=== PATIENT | male | born 1985 | race American Indian/Alaskan Native ===

== ENCOUNTER 2017-06-15 14:31 | Emergency (ER) | payer SELFPAY ==
[2017-06-15 16:18] LABS: Bilirubin,Urine NEG (Negative); Blood,Urine NEG (Negative); Ketones,Urine NEG (Negative); Leukocyte Esterase,Urine TR (Negative); Mucus,Urine 2+ /HPF; Nitrite,Urine NEG (Negative); Protein,Urine <15 mg/dL mg/dL (Negative)
--- NOTE | 2017-06-15 19:16 | Emergency Department Report ---
HPI - General Chief Complaint: Urogenital-Male Time Seen by Provider: 06/15/17 18:58 - HPI HPI: 31-year-old male presents today complaining of streaks of blood in his urine 2 days. 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 Denies any pain. Denies burning upon urination, increased urinary frequency or urgency, penile discharge. Denies fever, chills, nausea, vomiting, chest pain, shortness of breath, abdominal pain. ED Past Medical Hx - Past Medical History Previous Medical History?: No - Surgical History Past Surgical History?: No - Medications Home Medications: Home Medications Medication Instructions Recorded Confirmed Last Taken Type Nitrofurantoin [place]/M-Cryst 100 mg PO Q12HR #10 capsule 06/15/17 Unknown Rx [Macrobid CAP] ED Review of Systems ROS: Stated complaint: URINATING BLOOD Other details as noted in HPI Constitutional: denies: chills, fever, malaise Eyes: denies: eye pain ENT: denies: ear pain, throat pain, congestion Respiratory: denies: cough, shortness of breath, wheezing Cardiovascular: denies: chest pain, palpitations Endocrine: no symptoms reported Gastrointestinal: denies: abdominal pain, nausea, vomiting Genitourinary: hematuria. denies: urgency, dysuria, frequency, discharge, testicular pain, testicular mass Musculoskeletal: denies: back pain Skin: denies: rash, lesions Neurological: denies: headache, weakness, numbness, paresthesias Psychiatric: denies: anxiety, depression Physical Exam - Physical Exam Vital Signs: Vital Signs 06/15/17 15:47 Temperature 98.4 F Pulse Rate 74 Respiratory 18 Rate Blood Pressure 124/77 O2 Sat by Pulse 100 Oximetry Physical Exam: GENERAL: The patient is well-developed and well-nourished. Patient is in NAD. HEAD: Normocephalic. Atraumatic. NECK: Supple, nontender, without lymphadenopathy. No meningitic signs are noted. CHEST/LUNGS: Clear to auscultation throughout. HEART/CARDIOVASCULAR: Regular rate and rhythm. No murmurs, rubs or gallops. ABDOMEN: Abdomen is soft, nontender. Bowel sounds normoactive. No guarding or rebound tenderness. Negative for CVA tenderness bilaterally. EXTREMITIES: No cyanosis, clubbing or edema. Peripheral pulses intact. Capillary refill less than 2 seconds. NEURO: Alert and oriented x 3. Normal gait. ED Course Vital Signs 06/15/17 15:47 Temperature 98.4 F Pulse Rate 74 Respiratory 18 Rate Blood Pressure 124/77 O2 Sat by Pulse 100 Oximetry ED Medical Decision Making - Lab Data Vital Signs 06/15/17 15:47 Temperature 98.4 F Pulse Rate 74 Respiratory 18 Rate Blood Pressure 124/77 O2 Sat by Pulse 100 Oximetry Lab Results 06/15/17 Range/Units 15:57 Urine Color Yellow (Yellow) Urine Turbidity Clear (Clear) Urine pH 6.0 (5.0-7.0) Ur Specific [place] 1.024 (1.003-1.030) Urine Protein <15 mg/dl (Negative) mg/dL Urine Glucose (UA) Neg (Negative) mg/dL Urine Ketones Neg (Negative) mg/dL Urine Blood Neg (Negative) Urine Nitrite Neg (Negative) Urine Bilirubin Neg (Negative) Urine Urobilinogen 2.0 (<2.0) mg/dL Ur Leukocyte Esterase Tr (Negative) Urine WBC (Auto) 2.0 (0.0-6.0) /HPF Urine RBC (Auto) 2.0 (0.0-6.0) /HPF U Epithel Cells (Auto) < 1.0 (0-13.0) /HPF Urine Mucus 2+ /HPF - Medical Decision Making 31-year-old male presents today with streaks of blood in his urine 2 days. His urinalysis reveals no blood, a trace of leukocyte Estrace.Patient is in no acute distress at this time. He will be discharged home and is encouraged to follow up with a primary care provider. He will be sent home on Bactrim and is encouraged to return to the emergency room for any worsening symptoms. A referral for urologist has been provided. Critical care attestation.: If time is entered above; I have spent that time in minutes in the direct care of this critically ill patient, excluding procedure time. ED Disposition Clinical Impression: UTI (urinary tract infection) Qualifiers: Urinary tract infection type: acute cystitis Hematuria presence: without hematuria Qualified Code(s): N30.00 - Acute cystitis without hematuria Disposition: TO HOME OR SELFCARE Is pt being admited?: No Does the pt Need Aspirin: No Condition: Stable Instructions: Urinary Tract Infection in Men (ED) Additional Instructions: Follow-up with primary care provider. Return to the emergency department if symptoms worsen. Prescriptions: Nitrofurantoin [place]/M-Cryst [Macrobid CAP] 100 mg PO Q12HR #10 capsule Referrals: PRIMARY CAREMD [Primary Care Provider] - 3-5 Days [facility] [Outside] - 3-5 Days REBEL MCKEON MD [Staff Physician] - 3-5 Days Forms: Work/School Release Form(ED) Time of Disposition: 19:18
[2017-06-15 19:30] VITALS: BP 129/72
== END 2017-06-15 19:30 | disposition home or self-care (01) ==
LOC: ED 14:31
DX: N30.00 Acute cystitis without hematuria (principal)
CPT/HCPCS: 81001; 99283

== ENCOUNTER 2019-09-22 14:38 | Emergency (ER) | payer SELFPAY | END 2019-09-22 17:25 | disposition left against medical advice (07) | LOC: ED 14:38 | DX: M79.641 Pain in right hand (principal); Z53.21 Procedure and treatment not carried out due to patient leaving prior to being seen by health care provider ==

== ENCOUNTER 2021-03-31 14:08 | Emergency (ER) | payer SELFPAY ==
[2021-03-31 16:57] LABS: Bilirubin,Urine NEG (Negative); Blood,Urine NEG (Negative); Color,Urine Yellow (Yellow); Mucus,Urine 2+ /HPF; Protein,Urine <15 mg/dL mg/dL (Negative)
--- NOTE | 2021-03-31 19:16 | Emergency Department Report ---
ED Male HPI - General Chief complaint: Urogenital-Male Stated complaint: BLOOD W/URINATION Source: patient Mode of arrival: Ambulatory Limitations: No Limitations - History of Present Illness Initial comments: Patient is a 35-year-old male presents emergency with complaints of hematuria that occurred 2 days ago. He states that it has resolved. 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 He denies any abdominal pain, hematochezia, melena hematemesis, melena, fever, nausea, vomiting, diarrhea, pain or swelling in the testicles, penile discharge, lesions or blisters, back pain. No past medical history. Allergy to penicillin. pt states he is sexually active - Related Data Previous Rx's Medication Instructions Recorded Last Taken Type Nitrofurantoin [place]/M-Cryst 100 mg PO Q12HR #10 capsule 06/15/17 Unknown Rx [Macrobid CAP] Allergies Allergy/AdvReac Type Severity Reaction Status Date / Time Penicillins Allergy Rash Verified 03/31/21 15:22 ED Review of Systems ROS: Stated complaint: BLOOD W/URINATION Other details as noted in HPI Comment: All other systems reviewed and negative ED Past Medical Hx - Past Medical History Previous Medical History?: No - Surgical History Additional Surgical History: KNEE - Social History Smoking Status: Never Smoker Substance Use Type: None - Medications Home Medications: Home Medications Medication Instructions Recorded Confirmed Last Taken Type Nitrofurantoin [place]/M-Cryst 100 mg PO Q12HR #10 capsule 06/15/17 Unknown Rx [Macrobid CAP] ED Physical Exam - General Limitations: No Limitations General appearance: alert, in no apparent distress - Head Head exam: Present: atraumatic, normocephalic - Eye Eye exam: Present: normal appearance - ENT ENT exam: Present: mucous membranes moist - Respiratory Respiratory exam: Present: normal lung sounds bilaterally. Absent: respiratory distress, wheezes, rales, rhonchi, stridor, chest wall tenderness, accessory muscle use, decreased breath sounds, prolonged expiratory - Cardiovascular Cardiovascular Exam: Present: regular rate, normal rhythm, normal heart sounds. Absent: systolic murmur, diastolic murmur, rubs, gallop - GI/Abdominal GI/Abdominal exam: Present: soft, normal bowel sounds. Absent: distended, tenderness, guarding, rebound, rigid - Neurological Exam Neurological exam: Present: alert, oriented X3 - Psychiatric Psychiatric exam: Present: normal affect, normal mood - Skin Skin exam: Present: warm, dry, intact ED Course Vital Signs 03/31/21 15:24 Temperature 99.0 F Pulse Rate 87 Respiratory 20 Rate Blood Pressure 137/81 O2 Sat by Pulse 100 Oximetry ED Medical Decision Making - Medical Decision Making Patient is a 35-year-old male presents emergency with complaints of hematuria that occurred 2 days ago. He states that it has resolved. 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 He denies any abdominal pain, hematochezia, melena hematemesis, melena, fever, nausea, vomiting, diarrhea, pain or swelling in the testicles, penile discharge, lesions or blisters, back pain. No past medical history. Allergy to penicillin. pt states he is sexually active. Vitals are normal. No abnormality on physical examination as documented in chart. Patient had an episode of hematuria 2 days ago but has no hematuria now. He has no abdominal pain or back pain. UA shows evidence of small amount of white blood cells, but no leukocyte esterase, no nitrites, he is asymptomatic at this time, no significant red blood cells in urine. Offered patient prophylactic treatment fo r STDs and he politely declined, he states that he will follow-up with the clinic or the health department for STD testing. Patient declines antibiotic treatment. Discussed the importance of primary care follow-up. Advised patient please follow up with the clinic or health department for full STD panel. have any partner tested and treated as well. follow up with primary care doctor. return to the emergency room for any new or worsening symptoms. Critical care attestation.: If time is entered above; I have spent that time in minutes in the direct care of this critically ill patient, excluding procedure time. ED Disposition Clinical Impression: Concern about STD in male without diagnosis Hematuria Qualifiers: Hematuria type: unspecified type Qualified Code(s): R31.9 - Hematuria, unspecified Disposition: -01 TO HOME OR SELFCARE Is pt being admited?: No Does the pt Need Aspirin: No Condition: Stable Instructions: Hematuria, Adult Additional Instructions: please follow up with the clinic or health department for full STD panel. have any partner tested and treated as well. follow up with primary care doctor. return to the emergency room for any new or worsening symptoms. walk in clinic for STD testing: [facility] Address: [address] [place] [address], [place] [address] Referrals: [facility] [Outside] - 2-3 Days Forms: Work/School Release Form(ED) Time of Disposition: 19:14 Print Language: LITHUANIAN
[2021-03-31 19:19] VITALS: BP 137/81
== END 2021-03-31 20:20 | disposition home or self-care (01) ==
LOC: ED 14:08
DX: R31.9 Hematuria, unspecified (principal)
CPT/HCPCS: 81001; 87086; 99283